=== PATIENT | male | born 1955 | race Two or more races ===

== ENCOUNTER → 2019-06-09 06:00 | Outpatient (CLI) | payer OTHER ==
[~2019-06-09] VITALS: Ht 172.7 cm; Wt 81.6 kg
[~2019-06-09 06:00] MED LIST: ALBUTEROL2.5 MG/3 M IH; COZAAR25 MG PO; SYMBICORT 16010.2 GM IH; TIROSINT50 MCG PO; [UNRECOGNIZED DRUG - OTHER]
== END | disposition home or self-care (01) ==
LOC: LAB 06:00 → SURG 08:15 → EDSTATUS 06-21 08:15 → SURG 06-21 17:30
DX: Z01.812 Encounter for preprocedural laboratory examination (principal); Z01.811 Encounter for preprocedural respiratory examination; K57.32 Diverticulitis of large intestine without perforation or abscess without bleeding; K92.1 Melena

== ENCOUNTER 2019-07-07 16:24 | Emergency (ER) | payer OTHER ==
[~2019-07-07] VITALS: Ht 172.7 cm; Wt 81.6 kg
== END 2019-07-07 23:27 | disposition home or self-care (01) ==
LOC: ER 16:24
DX: K57.30 Diverticulosis of large intestine without perforation or abscess without bleeding (principal); K58.8 Other irritable bowel syndrome